=== PATIENT | male | born 1970 | race Caucasian/White ===

== ENCOUNTER 2020-03-15 11:41 | Emergency (ER) | payer MEDICAID, OTHER ==
[~2020-03-15] VITALS: Ht 177.8 cm; Wt 154.0 kg
[2020-03-15] MEDS ORDERED: ketorolac tromethamine 15mg/ml inj. IM ONE (14:00)
[2020-03-15] MEDS ORDERED: orphenadrine citrate 60mg/2ml inj. IM ONE (14:00)
[2020-03-15] MEDS ORDERED: CYCL-1 PO (14:01)
[2020-03-15] MEDS ORDERED: IBUP-1984 PO (14:01)
[2020-03-15 14:34] VITALS: BP 124/89
== END 2020-03-15 14:36 | disposition home or self-care (01) ==
LOC: ER 11:41
DX: S29.012A Strain of muscle and tendon of back wall of thorax, initial encounter (principal); Z79.2 Long term (current) use of antibiotics; Z79.899 Other long term (current) drug therapy; X58.XXXA Exposure to other specified factors, initial encounter; Y93.89 Activity, other specified; Y92.89 Other specified places as the place of occurrence of the external cause; Y99.8 Other external cause status
CPT/HCPCS: 71046; 96372; 99284; J1885; J2360

== ENCOUNTER 2021-01-31 13:47 | Emergency (ER) | payer MEDICAID ==
[~2021-01-31] VITALS: Ht 177.8 cm; Wt 150.0 kg
[~2021-01-31 13:47] MED LIST: CYCL-1 PO
[2021-01-31 14:29] VITALS: BP 140/110
[2021-01-31] MEDS ORDERED: HYDROcodone/acetaminophen 5mg/325mg tablet PO ONE (16:15)
[2021-01-31] MEDS ORDERED: LIDO700A32 TOP (16:27)
[2021-01-31] MEDS ORDERED: NAPR-56 PO (16:27)
== END 2021-01-31 16:49 | disposition home or self-care (01) ==
LOC: ER 13:49
DX: S22.42XA Multiple fractures of ribs, left side, initial encounter for closed fracture (principal); R07.81 Pleurodynia; Z88.1 Allergy status to other antibiotic agents; Z79.899 Other long term (current) drug therapy; X58.XXXA Exposure to other specified factors, initial encounter; Y93.89 Activity, other specified; Y92.89 Other specified places as the place of occurrence of the external cause; Y99.8 Other external cause status
CPT/HCPCS: 71101; 99283

== ENCOUNTER 2021-02-12 07:25 | Emergency (ER) | payer MEDICAID ==
[~2021-02-12] VITALS: Ht 175.3 cm; Wt 145.4 kg
[~2021-02-12 07:25] MED LIST changes: +LIDO700A32 TOP; +NAPR-56 PO
[2021-02-12 07:42] VITALS: BP 125/96
[2021-02-12] MEDS ORDERED: pantoprazole 40 MG vial IV ONE (08:00)
[2021-02-12] MEDS ORDERED: normal saline 1000ML IV soln IVB ONE (08:00)
[2021-02-12] MEDS ORDERED: proCHLORperazine 10 MG/2 ml inj IV ONE (08:00)
[2021-02-12 08:53] LABS: BASOPHILS # (AUTO) 0.1 X10'3 (0-0.2); EOSINOPHILS # (AUTO) 0.1 X10'3 (0-0.9); HEMOGLOBIN 15.6 g/dl (14.0-17.9); LYMPHOCYTES # (AUTO) 3.2 X10'3 (1.1-4.8); MEAN CORPUSCULAR HEMOGLOBIN 31.3 PG (27.0-31.0); MONOCYTES # (AUTO) 0.3 X10'3 (0-0.9); RED BLOOD COUNT 4.99 X10'6 (4.70-6.10); WHITE BLOOD COUNT 5.4 X10'3 (4.5-11.0)
[2021-02-12 08:55] LABS: EOSINOPHILS % (AUTO) 1.7 % (0-6); HEMATOCRIT 45.7 % (42.0-52.0); LYMPHOCYTES % (AUTO) 58.7 % (21-51); MEAN CORPUSCULAR HGB CONC 34.2 g/dL (33.0-36.5); MEAN CORPUSCULAR VOLUME 91.6 FL (78-98); MEAN PLATELET VOLUME 7.4 FL (7.4-10.4); MONOCYTES % (AUTO) 6.4 % (2-12); NEUTROPHILS # (AUTO) 1.7 X10'3 (1.8-7.7); NEUTROPHILS % (AUTO) 32.2 % (42-75); PLATELET COUNT 282 X10'3 (140-440); RED CELL DISTRIBUTION WIDTH 15.3 % (11.5-14.5)
[2021-02-12 09:09] LABS: ALANINE AMINOTRANSFERASE 67 U/L (12-78); ALBUMIN 3.5 G/DL (3.4-5.0); ALBUMIN/GLOBULIN RATIO 0.9 (1.1-1.5); ALKALINE PHOSPHATASE 152 IU/L (46-116); ANION GAP 6 (8-16); BLOOD UREA NITROGEN 16 MG/DL (7-18); CALCIUM 7.8 MG/DL (8.5-10.1); CHLORIDE 98 MMOL/L (99-107); CREATININE 0.94 MG/DL (0.60-1.10); GLUCOSE 121 MG/DL (70-104); LIPASE 149 U/L (73-393); POTASSIUM 3.4 MMOL/L (3.5-5.1); SODIUM 133 MMOL/L (135-145); TOTAL PROTEIN 7.3 G/DL (6.4-8.2); eGFR 85 ML/MIN
[2021-02-12 09:11] LABS: ASPARTATE AMINO TRANSFERASE 72 U/L (10-37)
[2021-02-12 09:12] LABS: ETHANOL 0.301 GM/DL (0.0-0.010)
--- NOTE | 2021-02-12 09:33 | NUR ---
ENCOURAGED PT TO VOID. PT IS STILL NAUSEOUS THEN FELL ASLEEP. EARLIER HE WAS ON THE PHONE TALKING TO HIS 12YR OLD DAUGHTER KAILYN.
[2021-02-12 09:43] LABS: TOTAL CELLS COUNTED 100
[2021-02-12 09:44] LABS: PLATELET ESTIMATE NORMAL
[2021-02-12 11:19] LABS: URINE AMPHETAMINE SCREEN NEGATIVE (Neg); URINE BARBITUATE SCREEN NEGATIVE (Neg); URINE BENZODIAZEPINES SCREEN NEGATIVE (Neg); URINE CANNABINOID SCREEN NEGATIVE (Neg); URINE COCAINE SCREEN NEGATIVE (Neg); URINE METHADONE SCREEN NEGATIVE (Neg); URINE OPIATE SCREEN NEGATIVE (Neg); URINE PHENCYCLIDINE SCREEN NEGATIVE (Neg)
== END 2021-02-12 10:53 | disposition home or self-care (01) ==
LOC: ER 07:25
DX: F10.129 Alcohol abuse with intoxication, unspecified (principal); I10 Essential (primary) hypertension; R07.81 Pleurodynia; G47.30 Sleep apnea, unspecified; F17.220 Nicotine dependence, chewing tobacco, uncomplicated; Z72.89 Other problems related to lifestyle; Z88.0 Allergy status to penicillin; Z79.899 Other long term (current) drug therapy; Y90.0 Blood alcohol level of less than 20 mg/100 ml
CPT/HCPCS: 36415; 71045; 80053; 80305; 80320; 83690; 85007; 85025; 96374; 96375; 99284; C9113; J0780; J7030